=== PATIENT | female | born 1995 | race Caucasian/White ===

== ENCOUNTER 2023-12-15 03:50 | Emergency (ER) | payer MEDICAID, OTHER ==
[~2023-12-15] VITALS: Ht 167.6 cm; Wt 127.0 kg
[~2023-12-15 03:50] MED LIST: IBUP-974 PO
[2023-12-15 03:57] VITALS: BP 138/88; PULSE 80; RESP 16; TEMP 98.3; O2SAT 99
[2023-12-15] MEDS: ONDANSETRON 4 MG ODT PO ONE (04:24)
== END 2023-12-15 05:50 | disposition home or self-care (01) ==
LOC: MED 03:50
DX: S20.219A Contusion of unspecified front wall of thorax, initial encounter (principal); S30.1XXA Contusion of abdominal wall, initial encounter; F10.129 Alcohol abuse with intoxication, unspecified; R51.9 Headache, unspecified; Z79.899 Other long term (current) drug therapy; Y90.9 Presence of alcohol in blood, level not specified; V89.2XXA Person injured in unspecified motor-vehicle accident, traffic, initial encounter; Y93.89 Activity, other specified; Y92.410 Unspecified street and highway as the place of occurrence of the external cause; Y99.8 Other external cause status
CPT/HCPCS: 70450; 71250; 74176; 81025; 99284; Q0162